=== PATIENT | female | born 1970 | race American Indian/Alaskan Native ===

== ENCOUNTER 2017-08-03 17:23 | Emergency (ER) | payer OTHER ==
--- NOTE | 2017-08-03 22:01 | XRay Report ---
FINAL REPORT PROCEDURE: XR CHEST ROUTINE 2V TECHNIQUE: PA and lateral chest radiographs were obtained. CPT 40526 HISTORY: Chest Pain COMPARISON: No prior studies are available for comparison. FINDINGS: Heart: Normal. Mediastinum/Vessels: Normal. Lungs/Pleural space: Normal. Bony thorax: No acute osseous abnormality. Other: IMPRESSION: Normal examination.
[2017-08-03 22:15] LABS: BUN/Creatinine Ratio 17; Blood Urea Nitrogen 10 mg/dL (7-17); Calcium 8.7 mg/dL (8.4-10.2); Hemolysis Index 26
[2017-08-03 22:27] LABS: Basophils # (Auto) 0.1 K/mm3 (0.0-0.1); Basophils % (Auto) 0.6 % (0.0-1.8); Eosinophils # (Auto) 0.2 K/mm3 (0.0-0.4); Eosinophils % (Auto) 1.7 % (0.0-4.3); Hematocrit 43.5 % (30.3-42.9); Hemoglobin 14.4 gm/dl (10.1-14.3); Lymphocytes # (Auto) 3.5 K/mm3 (1.2-5.4); Lymphocytes % (Auto) 25.6 % (13.4-35.0); Mean Corpuscular HGB Conc 33 % (30-34); Mean Corpuscular Hemoglobin 29 pg (28-32); Mean Corpuscular Volume 86 fl (79-97); Monocytes # (Auto) 0.8 K/mm3 (0.0-0.8); Monocytes % (Auto) 5.8 % (0.0-7.3); Platelet Count 459 K/mm3 (140-440); Red Blood Count 5.06 M/mm3 (3.65-5.03); Red Cell Distribution Width 12.8 % (13.2-15.2)
--- NOTE | 2017-08-04 02:03 | Emergency Department Report ---
ED Chest Pain HPI - General Chief Complaint: Chest Pain Stated Complaint: CHEST PAIN Time Seen by Provider: 08/04/17 01:55 Source: patient Mode of arrival: Ambulatory Limitations: No Limitations - History of Present Illness Initial Comments: Patient is 46 years old female presented to the ER with a chief complaint of chest pain with shortness of breath and generalized numbness and tingling sensation for the last 3 days. Patient denied any cough or fever. No nausea no vomiting. MD Complaint: chest pain -: days(s) Pain Location: left chest Severity scale (0 -10): 6 Quality: sharp Consistency: constant Worsens With: inspiration - Related Data Allergies Allergy/AdvReac Type Severity Reaction Status Date / Time aspirin AdvReac Unknown Verified 08/03/17 17:40 prochlorperazine AdvReac Unknown Verified 08/03/17 17:40 [From Compazine] Heart Score - HEART Score History: Slightly suspicious EKG: Non-specific Age: < 45 Risk factors: No known risk factors Troponin: < normal limit HEART Score: 1 - Critical Actions Critical Actions: 0-3 pts:0.9-1.7%risk of adverse cardiac event.Candidate for discharge ED Review of Systems ROS: Stated complaint: CHEST PAIN Other details as noted in HPI Comment: All other systems reviewed and negative Constitutional: denies: chills, fever Respiratory: shortness of breath. denies: cough, orthopnea Cardiovascular: chest pain, palpitations Gastrointestinal: denies: abdominal pain, nausea, vomiting Psychiatric: anxiety ED Past Medical Hx - Past Medical History Hx Asthma: Yes Additional medical history: occpital neuralgia - Surgical History Hx Cholecystectomy: Yes Additional Surgical History: 2 miscarriges D&C, spinal cord stimulator (removed) - Social History Smoking Status: Never Smoker Substance Use Type: None ED Physical Exam - General Limitations: No Limitations General appearance: alert, in no apparent distress, anxious - Head Head exam: Present: atraumatic, normocephalic - ENT ENT exam: Present: normal exam, normal orophraynx, mucous membranes moist - Neck Neck exam: Present: normal inspection, full ROM. Absent: tenderness, meningismus, lymphadenopathy - Respiratory Respiratory exam: Present: normal lung sounds bilaterally. Absent: respiratory distress, wheezes, rales, rhonchi, stridor, chest wall tenderness, accessory muscle use, decreased breath sounds - Cardiovascular Cardiovascular Exam: Present: tachycardia - GI/Abdominal GI/Abdominal exam: Present: soft, normal bowel sounds. Absent: distended, tenderness, guarding, rebound, rigid, organomegaly, mass, bruit, pulsatile mass - Extremities Exam Extremities exam: Present: normal inspection, full ROM, normal capillary refill - Back Exam Back exam: Present: normal inspection, full ROM. Absent: tenderness, CVA tenderness (R), CVA tenderness (L) - Neurological Exam Neurological exam: Present: alert, oriented X3, CN II-XII intact, normal gait - Skin Skin exam: Present: warm, intact, normal color ED Course Vital Signs 08/03/17 08/04/17 08/04/17 17:35 02:20 02:30 Temperature 98.9 F Pulse Rate 129 H 95 H Respiratory 22 16 Rate Blood Pressure 204/109 156/94 O2 Sat by Pulse 99 97 98 Oximetry 08/04/17 08/04/17 08/04/17 02:37 02:46 03:00 Temperature Pulse Rate 95 H 93 H Respiratory 20 16 17 Rate Blood Pressure 156/94 156/94 O2 Sat by Pulse 97 98 98 Oximetry - Reevaluation(s) Reevaluation #1: 08/04/17 05:40 Patient stated that she is feeling better. I advised patient to follow up with her primary care physician for further management. ED Medical Decision Making - Lab Data Result diagrams: 08/03/17 21:53 08/03/17 21:53 - EKG Data -: EKG Interpreted by Me Rate: tachycardia - EKG Data Interpretation: no acute changes - Radiology Data Radiology results: report reviewed Referring Physician: JOSE LUIS ARVIZU Patient Name: DANII SCHWAB Date of : 1970 Sex: Female Report Date: 2017-08-04 Report Status: Finalized Findings [facility] [address] [place] [address] Cat Scan Report Signed Patient: DANII SCHWAB MR#: [id number] : 1970 Acct:[id number] Age/Sex: 46 / F ADM Date: 08/03/17 Loc: ED Attending Dr: Ordering Physician: JOSE LUIS ARVIZU Date of Service: 08/04/17 Procedure(s): CT angio chest Accession Number(s): [id number] cc: JOSE LUIS ARVIZU FINAL REPORT EXAM: CT ANGIO CHEST HISTORY: CHEST PAIN WITH SOB COMPARISON: Chest x-ray from yesterday. TECHNIQUE: Contiguous axial images were obtained. Additional sagittal and coronal reformatted images were obtained. Administration of IV contrast given per institution protocol. Images submitted for interpretation. 100 cc Omnipaque 350. Max intensity projection images. FINDINGS: Heart normal in size. Thoracic aorta normal in caliber. No dissection. No pulmonary embolus. No pathologically enlarged intrathoracic or axillary lymph nodes. Tracheobronchial tree is patent. No focal consolidation or pleural effusion. Gallbladder surgically absent. Mild degenerative changes of the thoracic spine. IMPRESSION: No pulmonary embolus. No focal consolidation or pleural effusion. Transcribed By: LMA Dictated By: YUN LIRIANO MD Electronically Authenticated By: YUN LIRIANO MD Signed Date/Time: 08/04/17332 DD/ 2 TD/TT: 08/04/17332 Critical care attestation.: If time is entered above; I have spent that time in minutes in the direct care of this critically ill patient, excluding procedure time. ED Disposition Clinical Impression: Chest pain Disposition: DC-01 TO HOME OR SELFCARE Is pt being admited?: No Condition: Stable Instructions: Chest Pain (ED) Referrals: PRIMARY CARE, [Referring] - 3-5 Days
[2017-08-04 02:42] VITALS: BP 156/94
[2017-08-04] MEDS ORDERED: NACL ONE (02:58)
--- NOTE | 2017-08-04 03:38 | Cat Scan Report ---
FINAL REPORT EXAM: CT ANGIO CHEST HISTORY: CHEST PAIN WITH SOB COMPARISON: Chest x-ray from yesterday. TECHNIQUE: Contiguous axial images were obtained. Additional sagittal and coronal reformatted images were obtained. Administration of IV contrast given per institution protocol. Images submitted for interpretation. 100 cc Omnipaque 350. Max intensity projection images. FINDINGS: Heart normal in size. Thoracic aorta normal in caliber. No dissection. No pulmonary embolus. No pathologically enlarged intrathoracic or axillary lymph nodes. Tracheobronchial tree is patent. No focal consolidation or pleural effusion. Gallbladder surgically absent. Mild degenerative changes of the thoracic spine. IMPRESSION: No pulmonary embolus. No focal consolidation or pleural effusion.
[2017-08-04] MEDS ORDERED: TYLENOL PO ONE (03:59)
[2017-08-04] MEDS ORDERED: ATIVAN IV ONE (04:44)
== END 2017-08-04 05:59 | disposition home or self-care (01) ==
LOC: ED 17:23
DX: R07.89 Other chest pain (principal); F41.9 Anxiety disorder, unspecified; Z90.49 Acquired absence of other specified parts of digestive tract
CPT/HCPCS: 36415; 71046; 71275; 80048; 84484; 85025; 93005; 93010; 96374; 99284; J2060; Q9967

== ENCOUNTER 2017-12-07 07:31 | Outpatient (CLI) | payer OTHER ==
[2017-12-07] MEDS ORDERED: DULCOLAX PR ONE (08:33)
--- NOTE | 2017-12-07 11:03 | Fluoroscopy Report ---
DEFAGRAM History: Constipation. Findings: Sorter Operator film of the abdomen demonstrates a normal intestinal pattern. No rectal mass or ulceration is identified. 34 Lateral cine images were obtained during defecation. There is poor emptying of the rectosigmoid colon. Only 50% emptying is estimated. A very small rectocele is identified which appears to empty. No evidence for prolapse or enterocele. Impression: Incomplete evacuation of the rectosigmoid colon as described. Very small rectocele is suspected which appears to empty.
== END 2017-12-07 07:32 | disposition home or self-care (01) ==
LOC: FLUORO 07:31
PROVIDERS: ATTEND Internal Medicine Gastroenterology
DX: K59.00 Constipation, unspecified (principal); F32.9 Major depressive disorder, single episode, unspecified; J45.909 Unspecified asthma, uncomplicated; Z90.49 Acquired absence of other specified parts of digestive tract
CPT/HCPCS: 74270; Q9963